=== PATIENT | female | born 1970 | race Two or more races ===

== ENCOUNTER 2023-08-02 08:41 | Inpatient (IN) | payer MEDICAID ==
[~2023-08-02] VITALS: Ht 315 cm; Wt 89.8 kg
[~2023-08-02 08:41] MED LIST: ALBU6.7H15 INH; FLUT1DIS3 INH; GLIP5TAB22 MT; METF-414 MT; P20 MT
[2023-08-02 09:48] LABS: BG BASE EXCESS 7.6 mmol/L (-2.0-2.0); BG CARBOXYHEMOGLOBIN 6.1 % (0.5-1.5); BG DEOXYHEMOGLOBIN 5.1 % (0.0-5.0); BG FRACTION INSPIRED OXYGEN 36; BG HCO3 ACT 35.7 mmol/L (22.0-26.0); BG METHEMOGLOBIN 0.3 % (0.0-1.5); BG OXYGEN SATURATION 94.6 % (92.0-98.5); BG OXYHEMOGLOBIN 88.5 % (94.0-97.0); BG PCO2 66.8 mmHg (35.0-45.0); BG PH 7.346 (7.350-7.450); BG PO2 76.8 mmHg (75.0-100.0); BG SAMPLE SITE RIGHT RADIAL; BG TOTAL HEMOGLOBIN 13.8 g/dL (12.0-18.0); BG VENT MODE NASAL CANNULA
[2023-08-02 10:43] LABS: BASOPHILS % 0.2 % (0.0-2.0); EOSINOPHILS % 2.6 % (0.0-5.0); HEMATOCRIT. 40.5 % (36.0-48.0); HEMOGLOBIN. 12.8 g/dL (12.0-16.0); LYMPHOCYTES % 42.7 % (20.0-50.0); MEAN CORPUSCULAR HEMOGLOBIN 27.8 pg (28.0-32.0); MEAN CORPUSCULAR HGB CONC 31.8 g/dL (31.0-37.0); MEAN CORPUSCULAR VOLUME 87.5 fL (81.0-99.0); MEAN PLATELET VOLUME 7.3 fl (7.4-10.4); MONOCYTES % 8.8 % (2.0-8.0); NEUTROPHILS % 45.7 % (40.0-76.0); PLATELET 339 x1000/uL (130-400); RED BLOOD CELL COUNT 4.63 mill/uL (4.2-5.4); RED CELL DISTRIBUTION WIDTH 15.1 % (11.6-14.6); WHITE BLOOD COUNT 6.5 x1000/uL (4.5-11.0)
[2023-08-02 10:55] VITALS: RESP 21
[2023-08-02 11:25] LABS: CHLORIDE 103 mEq/L (98-107); POTASSIUM 3.7 mEq/L (3.5-5.1); SODIUM 141 mEq/L (136-145)
[2023-08-02 11:26] LABS: CALCIUM 10.1 mg/dL (8.7-10.4); CARBON DIOXIDE 33 mEq/L (21-32)
[2023-08-02 11:31] LABS: CREATININE 0.4 mg/dL (0.6-1.0); GLUCOSE 120 mg/dL (70-105); UREA NITROGEN BLOOD 8 mg/dL (9-23)
[2023-08-02 12:24] LABS: TROPONIN I HIGH SENSITIVITY 492 ng/L (3.0-34)
[2023-08-02] MEDS ORDERED: DEXTROSE 50% WATER 50ML SYRINGE IV PRN (16:30)
[2023-08-02] MEDS ORDERED: ONDANSETRON HCL 4MG/2ML INJ IV PRN (16:30)
[2023-08-02] MEDS ORDERED: ALBUTEROL 6.7GM HFA INHALER ORI PRN (17:00)
[2023-08-02] MEDS: BLOOD SUGAR DIAGNOSTIC STRIP TEST SCH (17:30)
[2023-08-02 17:50] VITALS: BP 130/77; PULSE 85; RESP 22; TEMP 98.7
[2023-08-02] MEDS: INSULIN LISPRO 100 UNITS/ML SUBCUT SCH (18:00)
[2023-08-02 20:00] VITALS: BP 122/70; PULSE 97; RESP 22; TEMP 98.4
[2023-08-02 22:00] VITALS: BP 102/70; PULSE 78; RESP 25
[2023-08-03] VITALS (14 sets, daily range): BP systolic 97–125; BP diastolic 56–79; PULSE 77–100; RESP 17–31; TEMP 97.8–99.6
[2023-08-03 01:51] LABS: *AMPHETAMINES SCREEN URINE PRESUMPTIVE POSITIVE (NEGATIVE); *BARBITURATES SCREEN URINE NEGATIVE (NEGATIVE); *BENZODIAZEPINES SCREEN URINE NEGATIVE (NEGATIVE); *COCAINE SCREEN URINE PRESUMPTIVE POSITIVE (NEGATIVE); CANNABINOID URINE SCREEN NEGATIVE (NEGATIVE); METHADONE URINE SCREEN NEGATIVE (NEGATIVE); OPIATES URINE SCREEN NEGATIVE (NEGATIVE); PHENCYCLIDINE URINE SCREEN NEGATIVE (NEGATIVE)
[2023-08-03 01:52] LABS: ECSTASY MDMA SCREEN URINE NEGATIVE (NEGATIVE)
[2023-08-03 09:35] LABS: BG BASE EXCESS 13.4 mmol/L (-2.0-2.0); BG CARBOXYHEMOGLOBIN 1.6 % (0.5-1.5); BG DEOXYHEMOGLOBIN 13.9 % (0.0-5.0); BG FRACTION INSPIRED OXYGEN 32; BG HCO3 ACT 42.8 mmol/L (22.0-26.0); BG METHEMOGLOBIN 0.1 % (0.0-1.5); BG OXYGEN SATURATION 85.9 % (92.0-98.5); BG OXYHEMOGLOBIN 84.4 % (94.0-97.0); BG PCO2 78.3 mmHg (35.0-45.0); BG PH 7.356 (7.350-7.450); BG PO2 50.6 mmHg (75.0-100.0); BG SAMPLE SITE RIGHT RADIAL; BG TOTAL HEMOGLOBIN 14.3 g/dL (12.0-18.0); BG VENT MODE NASAL CANNULA
[2023-08-03] MEDS: DEXAMETHASONE 6MG TABLET PO SCH (10:47)
[2023-08-03] MEDS: CEFTRIAXONE 1GM/50ML 50 ML IV SCH (10:47)
[2023-08-03] MEDS ORDERED: GUAIFENESIN-DM 200MG-20MG/10ML UDC PO PRN (15:00)
[2023-08-04] VITALS (12 sets, daily range): BP systolic 102–137; BP diastolic 51–86; PULSE 77–104; RESP 22–31; TEMP 97.6–98.9
[2023-08-04] MEDS: ACETAMINOPHEN 325MG TABLET PO PRN (09:53)
[2023-08-04 11:13] LABS: BG BASE EXCESS 12.2 mmol/L (-2.0-2.0); BG CARBOXYHEMOGLOBIN 0.9 % (0.5-1.5); BG DEOXYHEMOGLOBIN 5.4 % (0.0-5.0); BG FRACTION INSPIRED OXYGEN 36; BG HCO3 ACT 39.8 mmol/L (22.0-26.0); BG METHEMOGLOBIN 0.1 % (0.0-1.5); BG OXYGEN SATURATION 94.5 % (92.0-98.5); BG OXYHEMOGLOBIN 93.6 % (94.0-97.0); BG PCO2 66.1 mmHg (35.0-45.0); BG PH 7.398 (7.350-7.450); BG PO2 73.9 mmHg (75.0-100.0); BG SAMPLE SITE LEFT RADIAL; BG TOTAL HEMOGLOBIN 13.4 g/dL (12.0-18.0); BG VENT MODE NASAL CANNULA
[2023-08-04] MEDS: AZITHROMYCIN 500 MG TABLET PO SCH (12:11)
[2023-08-04 12:28] LABS: BASOPHILS % 0.2 % (0.0-2.0); EOSINOPHILS % 0.6 % (0.0-5.0); HEMATOCRIT. 38.5 % (36.0-48.0); HEMOGLOBIN. 12.3 g/dL (12.0-16.0); MEAN CORPUSCULAR HEMOGLOBIN 28.1 pg (28.0-32.0); MEAN CORPUSCULAR HGB CONC 31.9 g/dL (31.0-37.0); MEAN CORPUSCULAR VOLUME 88.1 fL (81.0-99.0); MEAN PLATELET VOLUME 7.9 fl (7.4-10.4); NEUTROPHILS % 59.2 % (40.0-76.0); PLATELET 367 x1000/uL (130-400); RED BLOOD CELL COUNT 4.37 mill/uL (4.2-5.4); RED CELL DISTRIBUTION WIDTH 14.9 % (11.6-14.6); WHITE BLOOD COUNT 8.3 x1000/uL (4.5-11.0)
[2023-08-04 12:31] LABS: CARBON DIOXIDE 39 mEq/L (21-32); CHLORIDE 98 mEq/L (98-107); POTASSIUM 3.8 mEq/L (3.5-5.1); SODIUM 139 mEq/L (136-145)
[2023-08-04 12:32] LABS: CALCIUM 10.5 mg/dL (8.7-10.4)
[2023-08-04 12:36] LABS: CREATININE 0.4 mg/dL (0.6-1.0)
[2023-08-04 12:37] LABS: GLUCOSE 175 mg/dL (70-105); UREA NITROGEN BLOOD 9 mg/dL (9-23)
[2023-08-04 12:47] LABS: TROPONIN I HIGH SENSITIVITY 228 ng/L (3.0-34)
[2023-08-05] VITALS (11 sets, daily range): BP systolic 78–129; BP diastolic 49–84; PULSE 69–102; RESP 16–33; TEMP 98.3–98.6
[2023-08-05 04:56] LABS: BASOPHILS % 0.3 % (0.0-2.0); EOSINOPHILS % 0.1 % (0.0-5.0); HEMOGLOBIN. 12.8 g/dL (12.0-16.0); MEAN CORPUSCULAR HEMOGLOBIN 28.7 pg (28.0-32.0); MEAN CORPUSCULAR HGB CONC 32.8 g/dL (31.0-37.0); MEAN CORPUSCULAR VOLUME 87.3 fL (81.0-99.0); MEAN PLATELET VOLUME 7.5 fl (7.4-10.4); MONOCYTES % 7.8 % (2.0-8.0); NEUTROPHILS % 62.8 % (40.0-76.0); PLATELET 368 x1000/uL (130-400); RED BLOOD CELL COUNT 4.47 mill/uL (4.2-5.4); RED CELL DISTRIBUTION WIDTH 14.8 % (11.6-14.6); WHITE BLOOD COUNT 8.6 x1000/uL (4.5-11.0)
[2023-08-05 05:09] LABS: CALCIUM 10.5 mg/dL (8.7-10.4); CHLORIDE 100 mEq/L (98-107); POTASSIUM 4.3 mEq/L (3.5-5.1); SODIUM 140 mEq/L (136-145)
[2023-08-05 05:10] LABS: CARBON DIOXIDE 38 mEq/L (21-32)
[2023-08-05 05:15] LABS: CREATININE 0.4 mg/dL (0.6-1.0); GLUCOSE 139 mg/dL (70-105); UREA NITROGEN BLOOD 11 mg/dL (9-23)
[2023-08-06] VITALS (12 sets, daily range): BP systolic 87–133; BP diastolic 62–87; PULSE 90–115; RESP 20–34; TEMP 97.4–98.7; O2SAT 94
[2023-08-06] MEDS ORDERED: ALBU6.7H15 INH (16:12)
[2023-08-06] MEDS ORDERED: FLUT1DIS3 INH (16:12)
[2023-08-06] MEDS: ALBUTEROL 6.7GM HFA INHALER ORI SCH (18:00)
== END 2023-08-06 18:40 | disposition home or self-care (01) | DRG 140 ==
LOC: ER 08:53 → 5EST 11:03 → EDBEDREQTM 11:04 → EDBEDREQ 11:04 → EDBEDREQSVC 11:04
PROVIDERS: ADMIT Internal Medicine; ATTEND Internal Medicine
PROC: 5A09357 Assistance with Respiratory Ventilation, Less than 24 Consecutive Hours, Continuous Positive Airway Pressure (ICD-10-PCS; principal; 2023-08-02)
PROC: 5A09357 Assistance with Respiratory Ventilation, Less than 24 Consecutive Hours, Continuous Positive Airway Pressure (ICD-10-PCS; 2023-08-03)
PROC: 5A09357 Assistance with Respiratory Ventilation, Less than 24 Consecutive Hours, Continuous Positive Airway Pressure (ICD-10-PCS; 2023-08-04)
DX: J44.1 Chronic obstructive pulmonary disease with (acute) exacerbation (principal); J96.22 Acute and chronic respiratory failure with hypercapnia; U07.1 COVID-19; I11.0 Hypertensive heart disease with heart failure; E87.29 Other acidosis; E66.2 Morbid (severe) obesity with alveolar hypoventilation; E11.9 Type 2 diabetes mellitus without complications; I50.32 Chronic diastolic (congestive) heart failure; F17.210 Nicotine dependence, cigarettes, uncomplicated; F14.10 Cocaine abuse, uncomplicated; F19.10 Other psychoactive substance abuse, uncomplicated; Z79.899 Other long term (current) drug therapy; Z88.0 Allergy status to penicillin; Z68.1 Body mass index [BMI] 19.9 or less, adult
CPT/HCPCS: 36415; 36600; 71045; 80048; 80305; 82375; 82805; 82962; 83880; 84484; 85025; 87426; 87804; 93005; 94660; 99285; J0696; J1815

== ENCOUNTER 2023-10-29 17:19 | Emergency (ER) | payer MEDICAID ==
[~2023-10-29] VITALS: Ht 167.6 cm; Wt 105.0 kg
[2023-10-29 17:26] VITALS: O2SAT 93
[2023-10-29] MEDS: ALBUTEROL (0.083%) 2.5MG/3ML NEB HHN SCH (18:00)
[2023-10-29 18:08] VITALS: PULSE 107; RESP 24
[2023-10-29] MEDS: ALBUTEROL (0.083%) 2.5MG/3ML NEB HHN STA (18:08)
[2023-10-29] MEDS: IPRATROPIUM BROMIDE (0.02%) 0.5MG/2.5ML NEB HHN STA (18:08)
[2023-10-29] MEDS: PREDNISONE 20MG TABLET PO STA (18:14)
[2023-10-29 18:15] LABS: BASOPHILS % 0.2 % (0.0-2.0); HEMATOCRIT. 39.7 % (36.0-48.0); HEMOGLOBIN. 12.7 g/dL (12.0-16.0); MEAN CORPUSCULAR HEMOGLOBIN 29.6 pg (28.0-32.0); MEAN CORPUSCULAR HGB CONC 32.1 g/dL (31.0-37.0); MEAN CORPUSCULAR VOLUME 92.2 fL (81.0-99.0); MEAN PLATELET VOLUME 7.5 fl (7.4-10.4); MONOCYTES % 7.9 % (2.0-8.0); NEUTROPHILS % 80.9 % (40.0-76.0); PLATELET 393 x1000/uL (130-400); RED CELL DISTRIBUTION WIDTH 15.3 % (11.6-14.6); WHITE BLOOD COUNT 14.5 x1000/uL (4.5-11.0)
[2023-10-29 18:25] LABS: CARBON DIOXIDE 31 mEq/L (21-32); CHLORIDE 96 mEq/L (98-107); SODIUM 132 mEq/L (136-145)
[2023-10-29 18:26] LABS: CALCIUM 10.9 mg/dL (8.7-10.4)
[2023-10-29 18:30] LABS: CREATININE 0.7 mg/dL (0.6-1.0)
[2023-10-29 18:31] LABS: GLUCOSE 300 mg/dL (70-105); UREA NITROGEN BLOOD 7 mg/dL (9-23)
[2023-10-29 19:10] LABS: TROPONIN I HIGH SENSITIVITY < 4 ng/L (3.0-34)
[2023-10-29] MEDS: FUROSEMIDE 40MG/4ML VIAL IVP ONE (21:25)
[2023-10-29 22:45] VITALS: BP 117/71; PULSE 112; RESP 17; TEMP 36.72516; O2SAT 93
== END 2023-10-29 22:54 | disposition short-term general hospital (02) ==
LOC: ER 17:19 → EDBEDREQTM 21:55 → EDBEDREQ 21:55 → ER 22:54
DX: J45.901 Unspecified asthma with (acute) exacerbation (principal); I50.9 Heart failure, unspecified; J90 Pleural effusion, not elsewhere classified; E11.9 Type 2 diabetes mellitus without complications; Z79.899 Other long term (current) drug therapy; Z88.0 Allergy status to penicillin
CPT/HCPCS: 80048; 83880; 85025; 84484; 36415; 71045; 94640; 93005; 96374; 99285; J7512; J1940; Z7610 ×3

== ENCOUNTER 2024-12-14 08:06 | Inpatient (IN) | payer MEDICAID ==
[2024-12-14] VITALS (9 sets, daily range): BP systolic 117–128; BP diastolic 67–73; PULSE 95–105; RESP 26–33; TEMP 36.3–36.7; O2SAT 93–98
[~2024-12-14] VITALS: Ht 149.9 cm; Wt 84.8 kg
[2024-12-14] MEDS ORDERED: SODIUM CHLORIDE 0.9% (SEPSIS BOLUS) IV ONE (08:30)
[2024-12-14] MEDS: MAGNESIUM 2 G PREMIX 50 ML IV ONE (08:30)
[2024-12-14] MEDS: METHYLPREDNISOLONE SOD SUCC 125MG/2ML (ACT-O-VIAL) IV ONE (08:30)
[2024-12-14] MEDS: SODIUM CHLORIDE 0.9% (SEPSIS BOLUS) IV ONE (08:45)
[2024-12-14] MEDS: IPRATROPIUM BROMIDE (0.02%) 0.5MG/2.5ML NEB HHN SCH (09:09)
[2024-12-14] MEDS: ALBUTEROL (0.083%) 2.5MG/3ML NEB HHN SCH (09:09)
[2024-12-14 09:38] LABS: INR 0.9
[2024-12-14 09:46] LABS: CREATININE 0.5 mg/dL (0.6-1.0); TROPONIN I HIGH SENSITIVITY 4 ng/L (3.0-34); UREA NITROGEN BLOOD 7 mg/dL (9-23)
[2024-12-14 09:47] LABS: ASPARTATE AMINOTRANSFERASE 14 IU/L (<34); BASOPHILS % 0.1 % (0.0-2.0); EOSINOPHILS % 3.4 % (0.0-5.0); HEMATOCRIT. 41.7 % (36.0-48.0); HEMOGLOBIN. 13.5 g/dL (12.0-16.0); LYMPHOCYTES % 12.4 % (20.0-50.0); MEAN PLATELET VOLUME 7.8 fl (7.4-10.4); MONOCYTES % 6.8 % (2.0-8.0); NEUTROPHILS % 77.3 % (40.0-76.0); PLATELET 233 x1000/uL (130-400); RED BLOOD CELL COUNT 4.39 mill/uL (4.2-5.4); RED CELL DISTRIBUTION WIDTH 14.6 % (11.6-14.6)
[2024-12-14 09:48] LABS: BILIRUBIN DIRECT < 0.1 mg/dL (<=3.0); BILIRUBIN TOTAL 0.3 mg/dL (0.1-1.0); PROTEIN TOTAL 6.7 g/dL (6.0-8.3)
[2024-12-14 11:07] LABS: TROPONIN I HIGH SENSITIVITY 4 ng/L (3.0-34)
[2024-12-14 11:24] LABS: BG BASE EXCESS 10.8 mmol/L (-2.0-3.0); BG CARBOXYHEMOGLOBIN 5.7 % (0.5-1.5); BG DEOXYHEMOGLOBIN 4.7 % (0.0-5.0); BG FRACTION INSPIRED OXYGEN 50; BG HCO3 ACT 44.2 mmol/L (21.0-28.0); BG METHEMOGLOBIN 0.1 % (0.5-1.5); BG OXYGEN SATURATION 95.0 % (94.0-98.0); BG OXYHEMOGLOBIN 89.5 % (94.0-98.0); BG PCO2 116.7 mmHg (32.0-45.0); BG PH 7.196 (7.350-7.450); BG PO2 79.5 mmHg (83.0-108.0); BG SAMPLE SITE RIGHT RADIAL; BG TOTAL HEMOGLOBIN 14.6 g/dL (12.0-16.0); BG VENT MODE MASK - BIPAP; BG VENT RATE 24.0 set
[2024-12-14 12:15] LABS: INFLUENZA TYPE A Presumptive Negative (Pres. Neg.)
[2024-12-14 12:16] LABS: INFLUENZA TYPE B Presumptive Negative (Pres. Neg.); RESPIRATORY SYNCYTIAL VIRUS Not Detected (Not Detectd)
[2024-12-14 12:19] LABS: TROPONIN I HIGH SENSITIVITY < 4 ng/L (3.0-34)
[2024-12-14] MEDS ORDERED: ONDANSETRON HCL 4MG/2ML INJ IV PRN ×2 (12:45→13:00)
[2024-12-14] MEDS ORDERED: HYDR25TA PO (12:49)
[2024-12-14] MEDS ORDERED: ACETAMINOPHEN 325MG TABLET PO PRN (13:00)
[2024-12-14] MEDS ORDERED: DEXTROSE 50% WATER 50ML SYRINGE IV PRN (13:00)
[2024-12-14 13:42] LABS: BG BASE EXCESS 8.9 mmol/L (-2.0-3.0); BG CARBOXYHEMOGLOBIN 5.5 % (0.5-1.5); BG DEOXYHEMOGLOBIN 4.4 % (0.0-5.0); BG FRACTION INSPIRED OXYGEN 80; BG HCO3 ACT 41.8 mmol/L (21.0-28.0); BG METHEMOGLOBIN 0.3 % (0.5-1.5); BG OXYGEN SATURATION 95.3 % (94.0-98.0); BG OXYHEMOGLOBIN 89.8 % (94.0-98.0); BG PCO2 109.2 mmHg (32.0-45.0); BG PH 7.201 (7.350-7.450); BG PO2 80.7 mmHg (83.0-108.0); BG SAMPLE SITE RIGHT RADIAL; BG TOTAL HEMOGLOBIN 14.8 g/dL (12.0-16.0); BG VENT MODE MASK - BIPAP; BG VENT RATE 30.0 set
[2024-12-14 16:15] LABS: BG BASE EXCESS 3.1 mmol/L (-2.0-3.0); BG CARBOXYHEMOGLOBIN 4.0 % (0.5-1.5); BG DEOXYHEMOGLOBIN 2.7 % (0.0-5.0); BG FRACTION INSPIRED OXYGEN 80; BG HCO3 ACT 35.9 mmol/L (21.0-28.0); BG METHEMOGLOBIN 0.1 % (0.5-1.5); BG OXYGEN SATURATION 97.2 % (94.0-98.0); BG OXYHEMOGLOBIN 93.2 % (94.0-98.0); BG PCO2 106.2 mmHg (32.0-45.0); BG PH 7.147 (7.350-7.450); BG PO2 101.9 mmHg (83.0-108.0); BG SAMPLE SITE RIGHT RADIAL; BG TOTAL HEMOGLOBIN 14.6 g/dL (12.0-16.0); BG VENT MODE MASK - BIPAP; BG VENT RATE 30.0 set
[2024-12-14] MEDS ORDERED: INFLUENZA VACCINE 05/PF 0.5 ML SYRINGE IM ONE (16:15)
[2024-12-14] MEDS: BLOOD SUGAR DIAGNOSTIC STRIP TEST SCH (16:51)
[2024-12-14] MEDS: METHYLPREDNISOLONE SOD SUCC 40MG/ML (ACT-O-VIAL) IV SCH (17:25)
[2024-12-14] MEDS: INSULIN LISPRO 100 UNITS/ML SUBCUT SCH (17:26)
[2024-12-14 20:12] LABS: CLARITY URINE CLEAR (CLEAR); COLOR URINE YELLOW (YELLOW); GLUCOSE URINE 3+ (NEGATIVE); KETONES URINE NEGATIVE (NEGATIVE); LEUKOCYTE ESTERASE URINE NEGATIVE (NEGATIVE); NITRITE URINE POSITIVE (NEGATIVE); OCCULT BLOOD URINE NEGATIVE (NEGATIVE); PH URINE 5.5 (4.5-8.0); PROTEIN URINE TRACE (NEGATIVE); SPECIFIC GRAVITY URINE 1.034 (1.005-1.030); UROBILINOGEN URINE 0.2 E.U./dL (0.2-1.0)
[2024-12-14 20:16] LABS: *AMPHETAMINES SCREEN URINE PRESUMPTIVE POSITIVE (NEGATIVE); *BARBITURATES SCREEN URINE NEGATIVE (NEGATIVE); *BENZODIAZEPINES SCREEN URINE NEGATIVE (NEGATIVE); *COCAINE SCREEN URINE PRESUMPTIVE POSITIVE (NEGATIVE); CANNABINOID URINE SCREEN NEGATIVE (NEGATIVE); ECSTASY MDMA SCREEN URINE CONF.TEST INDICATED (NEGATIVE); METHADONE URINE SCREEN NEGATIVE (NEGATIVE); OPIATES URINE SCREEN NEGATIVE (NEGATIVE); PHENCYCLIDINE URINE SCREEN NEGATIVE (NEGATIVE)
[2024-12-14 20:34] LABS: BACTERIA URINE 3+; RBC URINE 0-2 /hpf (0-2); SQUAMOUS EPITHELIAL CELL URINE FEW /lpf (RARE/1+)
[2024-12-15] VITALS (20 sets, daily range): BP systolic 110–132; BP diastolic 61–74; PULSE 85–111; RESP 20–33; TEMP 36.2–36.9; O2SAT 91–100
[2024-12-15] MEDS: IPRATROPIUM/ALBUTEROL 0.5-3(2.5)MG/3ML NEB HHN SCH (00:54)
[2024-12-15 08:05] LABS: HEMATOCRIT. 43.4 % (36.0-48.0); HEMOGLOBIN. 13.9 g/dL (12.0-16.0); MEAN PLATELET VOLUME 8.2 fl (7.4-10.4); PLATELET 213 x1000/uL (130-400); RED BLOOD CELL COUNT 4.53 mill/uL (4.2-5.4); RED CELL DISTRIBUTION WIDTH 14.7 % (11.6-14.6)
[2024-12-15 08:15] LABS: CREATININE 0.4 mg/dL (0.6-1.0); UREA NITROGEN BLOOD 11 mg/dL (9-23)
[2024-12-15] MEDS ORDERED: PANTOPRAZOLE SODIUM 40 MG/VIAL IV SCH (09:00)
[2024-12-15] MEDS: PANTOPRAZOLE SODIUM 40 MG/VIAL IV SCH (09:49)
[2024-12-15] MEDS: HYDROCHLOROTHIAZIDE 25MG TABLET PO SCH (09:49)
[2024-12-15 11:18] LABS: BG BASE EXCESS 7.1 mmol/L (-2.0-3.0); BG CARBOXYHEMOGLOBIN 0.8 % (0.5-1.5); BG DEOXYHEMOGLOBIN 3.6 % (0.0-5.0); BG FRACTION INSPIRED OXYGEN 80; BG HCO3 ACT 41.2 mmol/L (21.0-28.0); BG METHEMOGLOBIN 0.1 % (0.5-1.5); BG OXYGEN SATURATION 96.4 % (94.0-98.0); BG OXYHEMOGLOBIN 95.5 % (94.0-98.0); BG PCO2 123.4 mmHg (32.0-45.0); BG PH 7.141 (7.350-7.450); BG PO2 88.4 mmHg (83.0-108.0); BG SAMPLE SITE RIGHT RADIAL; BG TOTAL HEMOGLOBIN 14.6 g/dL (12.0-16.0); BG VENT MODE MASK - BIPAP; BG VENT RATE 30.0 set
[2024-12-15 13:39] LABS: BAND% 5.0 % (1.0-6.0); LYMPHOCYTES % MANUAL 8.0 % (20.0-60.0); NEUTROPHILS % MANUAL 87.0 % (45.0-75.0); PLATELET ESTIMATE NORMAL
[2024-12-15 14:46] LABS: BG BASE EXCESS 14.5 mmol/L (-2.0-3.0); BG CARBOXYHEMOGLOBIN 1.4 % (0.5-1.5); BG DEOXYHEMOGLOBIN 1.9 % (0.0-5.0); BG FLOW(L/min) 40.00 L/min; BG FRACTION INSPIRED OXYGEN 80; BG HCO3 ACT 47.7 mmol/L (21.0-28.0); BG METHEMOGLOBIN 0.0 % (0.5-1.5); BG OXYGEN SATURATION 98.1 % (94.0-98.0); BG OXYHEMOGLOBIN 96.7 % (94.0-98.0); BG PCO2 118.4 mmHg (32.0-45.0); BG PH 7.223 (7.350-7.450); BG PO2 104.9 mmHg (83.0-108.0); BG SAMPLE SITE RIGHT RADIAL; BG TOTAL HEMOGLOBIN 14.0 g/dL (12.0-16.0); BG VENT MODE HIGH FLOW
[2024-12-15] MEDS: CEFTRIAXONE 1GM/50ML 50 ML IV SCH (15:18)
[2024-12-15] MEDS: VANCOMYCIN 2GM PMX (XELLIA) 400 ML IV SCH (15:22)
[2024-12-15] MEDS: AZITHROMYCIN 500 MG TABLET PO SCH (22:36)
[2024-12-16] VITALS (18 sets, daily range): BP systolic 104–135; BP diastolic 50–70; PULSE 76–113; RESP 15–31; TEMP 36.6–36.7; O2SAT 91–98
[2024-12-16] MEDS: ACETAMINOPHEN 325MG TABLET PO PRN (03:58)
[2024-12-16] MEDS ORDERED: AZITHROMYCIN 500 MG TABLET PO SCH (09:00)
[2024-12-16] MEDS: VANCOMYCIN 1.25GM/250ML 250 ML IV SCH (09:26)
[2024-12-16 10:37] LABS: BG BASE EXCESS 16.0 mmol/L (-2.0-3.0); BG CARBOXYHEMOGLOBIN 1.4 % (0.5-1.5); BG DEOXYHEMOGLOBIN 2.8 % (0.0-5.0); BG FRACTION INSPIRED OXYGEN 60; BG HCO3 ACT 47.8 mmol/L (21.0-28.0); BG METHEMOGLOBIN 0.0 % (0.5-1.5); BG OXYGEN SATURATION 97.2 % (94.0-98.0); BG OXYHEMOGLOBIN 95.8 % (94.0-98.0); BG PCO2 101.7 mmHg (32.0-45.0); BG PH 7.290 (7.350-7.450); BG PO2 90.6 mmHg (83.0-108.0); BG SAMPLE SITE LEFT RADIAL; BG TOTAL HEMOGLOBIN 14.2 g/dL (12.0-16.0); BG VENT MODE MASK - BIPAP; BG VENT RATE 30.0 set
[2024-12-16] MEDS: ACETYLCYSTEINE 200MG/ML 20% VIAL 4ML INH SCH (16:17)
[2024-12-17] VITALS (18 sets, daily range): BP systolic 106–150; BP diastolic 65–140; PULSE 80–106; RESP 17–33; TEMP 36.6–37.4; O2SAT 88–99
[2024-12-17 00:26] LABS: CREATINE KINASE MB FRACTION < 0.5 ng/mL (0.5-3.6); TROPONIN I HIGH SENSITIVITY 6 ng/L (3.0-34)
[2024-12-17 00:31] LABS: T4 FREE 1.22 ng/dL (0.89-1.76)
[2024-12-17 06:33] LABS: CREATINE KINASE MB FRACTION < 0.5 ng/mL (0.5-3.6)
[2024-12-17 06:35] LABS: TROPONIN I HIGH SENSITIVITY 5 ng/L (3.0-34)
[2024-12-17] MEDS: ENOXAPARIN 40MG/0.4ML SYR SUBCUT SCH (09:51)
[2024-12-17 10:00] LABS: BG BASE EXCESS 15.2 mmol/L (-2.0-3.0); BG CARBOXYHEMOGLOBIN 1.7 % (0.5-1.5); BG DEOXYHEMOGLOBIN 1.2 % (0.0-5.0); BG FRACTION INSPIRED OXYGEN 60; BG HCO3 ACT 45.5 mmol/L (21.0-28.0); BG METHEMOGLOBIN 0.0 % (0.5-1.5); BG OXYGEN SATURATION 98.8 % (94.0-98.0); BG OXYHEMOGLOBIN 97.1 % (94.0-98.0); BG PCO2 86.1 mmHg (32.0-45.0); BG PH 7.341 (7.350-7.450); BG PO2 116.0 mmHg (83.0-108.0); BG SAMPLE SITE RIGHT RADIAL; BG TOTAL HEMOGLOBIN 14.3 g/dL (12.0-16.0); BG TOTAL RESPIRATORY RATE 35 b/min; BG VENT MODE MASK - BIPAP; BG VENT RATE 20.0 set
[2024-12-17] MEDS: INSULIN GLARGINE 100 UNITS/ML SUBCUT SCH ×2 (13:28→21:53)
[2024-12-17] MEDS: INSULIN LISPRO 100 UNITS/ML SUBCUT SCH (13:38)
[2024-12-17] MEDS: BLOOD SUGAR DIAGNOSTIC STRIP TEST SCH (17:55)
[2024-12-18] VITALS (18 sets, daily range): BP systolic 100–128; BP diastolic 59–80; PULSE 79–99; RESP 18–30; TEMP 36.6–36.8; O2SAT 87–99
[2024-12-18] MEDS: ZOLPIDEM TARTRATE 5MG TABLET PO PRN (00:03)
[2024-12-18] MEDS ORDERED: ENOXAPARIN 40MG/0.4ML SYR SUBCUT SCH (09:00)
[2024-12-18] MEDS: FAMOTIDINE 20MG TABLET PO SCH (09:56)
[2024-12-18 10:36] LABS: BG BASE EXCESS 14.6 mmol/L (-2.0-3.0); BG CARBOXYHEMOGLOBIN 0.6 % (0.5-1.5); BG DEOXYHEMOGLOBIN 10.3 % (0.0-5.0); BG FLOW(L/min) 30.00 L/min; BG FRACTION INSPIRED OXYGEN 60; BG HCO3 ACT 43.4 mmol/L (21.0-28.0); BG METHEMOGLOBIN 0.3 % (0.5-1.5); BG OXYGEN SATURATION 89.6 % (94.0-98.0); BG OXYHEMOGLOBIN 88.8 % (94.0-98.0); BG PCO2 74.5 mmHg (32.0-45.0); BG PH 7.383 (7.350-7.450); BG PO2 56.5 mmHg (83.0-108.0); BG SAMPLE SITE RIGHT BRACHIAL; BG TOTAL HEMOGLOBIN 13.8 g/dL (12.0-16.0); BG VENT MODE HIGH FLOW
[2024-12-18] MEDS: ENOXAPARIN 30MG/0.3ML SYR SUBCUT SCH (21:38)
[2024-12-18] MEDS: INSULIN GLARGINE 100 UNITS/ML SUBCUT SCH (21:42)
[2024-12-19] VITALS (16 sets, daily range): BP systolic 95–129; BP diastolic 60–86; PULSE 76–110; RESP 17–28; TEMP 36.3–36.7; O2SAT 86–98
[2024-12-19] MEDS: METHYLPREDNISOLONE SOD SUCC 40MG/ML (ACT-O-VIAL) IV SCH (21:26)
[2024-12-19] MEDS: INSULIN GLARGINE 100 UNITS/ML SUBCUT SCH (21:32)
[2024-12-20] VITALS (17 sets, daily range): BP systolic 109–144; BP diastolic 58–95; PULSE 79–107; RESP 15–27; TEMP 36.2–37.4; O2SAT 89–99
[2024-12-20] MEDS: IPRATROPIUM BROMIDE (0.02%) 0.5MG/2.5ML NEB HHN SCH (00:33)
[2024-12-21] VITALS (20 sets, daily range): BP systolic 114–141; BP diastolic 69–87; PULSE 77–102; RESP 17–27; TEMP 36.3–37.3; O2SAT 87–100
[2024-12-22] VITALS (18 sets, daily range): BP systolic 90–127; BP diastolic 55–84; PULSE 68–100; RESP 16–34; TEMP 36.3–36.9; O2SAT 90–95
[2024-12-22 06:49] LABS: BASOPHILS % 0.1 % (0.0-2.0); EOSINOPHILS % 0.2 % (0.0-5.0); HEMATOCRIT. 45.3 % (36.0-48.0); HEMOGLOBIN. 14.6 g/dL (12.0-16.0); LYMPHOCYTES % 14.8 % (20.0-50.0); MEAN PLATELET VOLUME 8.0 fl (7.4-10.4); MONOCYTES % 6.4 % (2.0-8.0); NEUTROPHILS % 78.5 % (40.0-76.0); PLATELET 265 x1000/uL (130-400); RED BLOOD CELL COUNT 4.92 mill/uL (4.2-5.4); RED CELL DISTRIBUTION WIDTH 14.0 % (11.6-14.6)
[2024-12-22 07:16] LABS: CREATININE 0.5 mg/dL (0.6-1.0)
[2024-12-22 07:17] LABS: UREA NITROGEN BLOOD 16 mg/dL (9-23)
[2024-12-22] MEDS: METHYLPREDNISOLONE SOD SUCC 40MG/ML (ACT-O-VIAL) IV SCH (17:04)
[2024-12-23] VITALS (18 sets, daily range): BP systolic 102–126; BP diastolic 43–102; PULSE 78–111; RESP 17–25; TEMP 36.2–36.6; O2SAT 88–97
[2024-12-23 05:47] LABS: BASOPHILS % 0.2 % (0.0-2.0); CREATININE 0.5 mg/dL (0.6-1.0); EOSINOPHILS % 0.6 % (0.0-5.0); HEMATOCRIT. 43.7 % (36.0-48.0); HEMOGLOBIN. 14.0 g/dL (12.0-16.0); LYMPHOCYTES % 40.3 % (20.0-50.0); MEAN PLATELET VOLUME 8.0 fl (7.4-10.4); MONOCYTES % 9.8 % (2.0-8.0); NEUTROPHILS % 49.1 % (40.0-76.0); PLATELET 266 x1000/uL (130-400); RED BLOOD CELL COUNT 4.74 mill/uL (4.2-5.4); RED CELL DISTRIBUTION WIDTH 14.0 % (11.6-14.6); UREA NITROGEN BLOOD 16 mg/dL (9-23)
[2024-12-23] MEDS: NICOTINE 21MG PATCH TD SCH (17:07)
[2024-12-23] MEDS: IPRATROPIUM/ALBUTEROL 0.5-3(2.5)MG/3ML NEB HHN PRN (21:37)
[2024-12-23] MEDS: ZOLPIDEM TARTRATE 5MG TABLET PO PRN (21:47)
[2024-12-23] MEDS: INSULIN GLARGINE 100 UNITS/ML SUBCUT SCH (21:49)
[2024-12-24] VITALS (10 sets, daily range): BP systolic 102–139; BP diastolic 55–89; PULSE 71–93; RESP 15–25; TEMP 36.4–36.9; O2SAT 93–100
[2024-12-24] MEDS ORDERED: ALBU18HF2 IH (10:13)
[2024-12-24] MEDS ORDERED: FLUT1DIS3 INH (10:13)
[2024-12-24] MEDS ORDERED: P20 MT (10:13)
== END 2024-12-24 15:20 | disposition home or self-care (01) | DRG 720 ==
LOC: ER 08:06 → 5EST 10:03 → EDBEDREQTM 10:05 → EDBEDREQ 10:05 → ENRESERV 13:58
PROVIDERS: ADMIT Internal Medicine; ATTEND Internal Medicine
PROC: 5A09357 Assistance with Respiratory Ventilation, Less than 24 Consecutive Hours, Continuous Positive Airway Pressure (ICD-10-PCS; 2024-12-14)
PROC: 5A09357 Assistance with Respiratory Ventilation, Less than 24 Consecutive Hours, Continuous Positive Airway Pressure (ICD-10-PCS; 2024-12-15)
PROC: 5A0935A Assistance with Respiratory Ventilation, Less than 24 Consecutive Hours, High Flow/Velocity Cannula (ICD-10-PCS; 2024-12-15)
PROC: 5A09357 Assistance with Respiratory Ventilation, Less than 24 Consecutive Hours, Continuous Positive Airway Pressure (ICD-10-PCS; 2024-12-16)
PROC: 5A0935A Assistance with Respiratory Ventilation, Less than 24 Consecutive Hours, High Flow/Velocity Cannula (ICD-10-PCS; 2024-12-16)
PROC: 5A09357 Assistance with Respiratory Ventilation, Less than 24 Consecutive Hours, Continuous Positive Airway Pressure (ICD-10-PCS; 2024-12-17)
PROC: 5A0935A Assistance with Respiratory Ventilation, Less than 24 Consecutive Hours, High Flow/Velocity Cannula (ICD-10-PCS; 2024-12-17)
PROC: 5A09357 Assistance with Respiratory Ventilation, Less than 24 Consecutive Hours, Continuous Positive Airway Pressure (ICD-10-PCS; 2024-12-18)
PROC: 5A0935A Assistance with Respiratory Ventilation, Less than 24 Consecutive Hours, High Flow/Velocity Cannula (ICD-10-PCS; 2024-12-18)
PROC: 5A09357 Assistance with Respiratory Ventilation, Less than 24 Consecutive Hours, Continuous Positive Airway Pressure (ICD-10-PCS; 2024-12-19)
PROC: 5A0935A Assistance with Respiratory Ventilation, Less than 24 Consecutive Hours, High Flow/Velocity Cannula (ICD-10-PCS; 2024-12-19)
PROC: 5A09357 Assistance with Respiratory Ventilation, Less than 24 Consecutive Hours, Continuous Positive Airway Pressure (ICD-10-PCS; principal; 2024-12-20)
PROC: 5A0935A Assistance with Respiratory Ventilation, Less than 24 Consecutive Hours, High Flow/Velocity Cannula (ICD-10-PCS; 2024-12-20)
PROC: 5A09357 Assistance with Respiratory Ventilation, Less than 24 Consecutive Hours, Continuous Positive Airway Pressure (ICD-10-PCS; 2024-12-21)
PROC: 5A0945A Assistance with Respiratory Ventilation, 24-96 Consecutive Hours, High Flow/Velocity Cannula (ICD-10-PCS; 2024-12-21)
DX: A41.9 Sepsis, unspecified organism (principal); J96.22 Acute and chronic respiratory failure with hypercapnia; J96.21 Acute and chronic respiratory failure with hypoxia; E87.29 Other acidosis; G93.41 Metabolic encephalopathy; Z20.822 Contact with and (suspected) exposure to COVID-19; I11.0 Hypertensive heart disease with heart failure; J44.1 Chronic obstructive pulmonary disease with (acute) exacerbation; E66.01 Morbid (severe) obesity due to excess calories; E11.65 Type 2 diabetes mellitus with hyperglycemia; I50.32 Chronic diastolic (congestive) heart failure; G47.33 Obstructive sleep apnea (adult) (pediatric); E78.5 Hyperlipidemia, unspecified; F14.10 Cocaine abuse, uncomplicated; F17.210 Nicotine dependence, cigarettes, uncomplicated; J84.9 Interstitial pulmonary disease, unspecified; Z83.3 Family history of diabetes mellitus; Z79.51 Long term (current) use of inhaled steroids; Z59.02 Unsheltered homelessness; Z79.84 Long term (current) use of oral hypoglycemic drugs; Z68.41 Body mass index [BMI] 40.0-44.9, adult; Z82.49 Family history of ischemic heart disease and other diseases of the circulatory system; Z88.0 Allergy status to penicillin; Z99.81 Dependence on supplemental oxygen; Z79.899 Other long term (current) drug therapy
CPT/HCPCS: 36415; 36600; 71045; 80048; 80076; 80305; 80320; 81003; 82375; 82550; 82553; 82805; 82962; 83036; 83605; 83735; 83880; 84145; 84439; 84443; 84484; 85025; 87420; 87426; 87804; 93005; 93306; 94003; 94070; 94640; 94660; 94664; 96365; 96375; 99291; A4606; J0696; J1650; J1815; J2470; J2919; J3373; J3475; J7030; J7608; G0480